=== PATIENT | male | born 2000 ===

== ENCOUNTER 2023-02-26 08:00 | Day surgery (SDC) | payer OTHER ==
[~2023-02-26] VITALS: Ht 177.8 cm; Wt 84.1 kg
[2023-02-26 11:35] VITALS: BP 120/76; PULSE 60; TEMP 98.5
--- NOTE | 2023-02-26 11:36 | NUR ---
Pt arrived to the floor via EMS. Pt is alert and oriented, rating pain 3/10 at this time. Pt aware that he cannot have anything to eat or drink at this time for upcoming surgery. Oriented pt to his room and educated him on the plan of care. Asked pt to use the provided urinal when he needs to void. Call light within reach
--- NOTE | 2023-02-26 12:41 | NUR ---
Fior RN here to get pt for surgery. Pt has not had anything to eat or drink since yesterday. Pt does have glasses which he is wearing going down to surgery. Pt also taking his cell phone with him, [employer]ior watts.
[2023-02-26] MEDS ORDERED: PYRIDIUM 100MG100 MG PO (13:41)
[2023-02-26] MEDS ORDERED: NORCO 325 MG-51 TAB PO (13:42)
[2023-02-26 14:50] VITALS: BP 109/66; PULSE 52; TEMP 97.7
--- NOTE | 2023-02-26 14:57 | NUR ---
Pt arrived back from surgery. Pt is alert and oriented with no pain complaints at this time. Educated pt on room service, meal ordered at this time. VSS
[2023-02-26 15:02] VITALS: TEMP 97.1
[2023-02-26 15:05] VITALS: BP 108/60; PULSE 54
[2023-02-26 15:20] VITALS: BP 109/67; PULSE 53
--- NOTE | 2023-02-26 15:26 | NUR ---
Discharge instructions reviewed with pt to include making follow up appointment and new prescriptions. Pt verbalized understanding. Pt awaiting his food
--- NOTE | 2023-02-26 16:20 | NUR ---
Pt escorted out
== END 2023-02-26 16:20 | disposition home or self-care (01) ==
LOC: SDCO 08:00 → SURG 12:00 → SDCO 16:20
DX: N13.2 Hydronephrosis with renal and ureteral calculous obstruction (principal)
CPT/HCPCS: OP; C1769; C2617; J0690; J1100; J2405; J2704; J3010; J7120; Q9967